=== PATIENT | male | born 1935 | race Caucasian/White ===

== ENCOUNTER 2016-08-01 18:17 | Observation (INO) | payer OTHER ==
[~2016-08-01] VITALS: Ht 172.7 cm; Wt 102.9 kg
[~2016-08-01 18:17] MED LIST: ASCORBIC ACID500 M3 PO; ATORVASTATIN CA20 MG PO; BENICAR20 MG PO; CRESTOR20 MG PO; FLUTICASONE PRO30 GM TP; FUROSEMIDE80 MG PO; HUMALOG; HUMALOG100 UNIT/1 SC; IRBESARTAN150 MG PO; JANUMET XR 50-1 EAC1 PO; K-DUR20 MEQ PO; LANTUS 10100 UNITS/ SC; LANTUS 3 M100 UNITS1 SC; LASIX40 MG PO; NASONEX17 GM BOTH NARES; PERCOCET 5/31 TABLET PO; ST. JOSEPH ASPI81 MG PO; VITAMIN B122500 MCG PO; VITAMIN D400 UNI4 PO
[2016-08-01 19:14] LABS: HEMATOCRIT 35.7 % (38.0-50.0); MCH 26.9 PG (29.0-34.0); MCHC 33.3 G/DL (30.0-36.0); MEAN PLAT.VOLUME 9.9 uM^3 (9.0-12.4); PLATELET COUNT 183 K/uL (156-360); RBC DIS.WIDTH-CV 13.9 % (11.8-14.6); RBC DIS.WIDTH-SD 39.9 % (39-53); RED BLOOD COUNT 4.43 M/uL (4.00-5.50)
[2016-08-01 19:26] LABS: MCV 80.6 FL (86-99); WHITE BLOOD COUNT 11.5 K/uL (4.1-10.2)
[2016-08-01 19:28] LABS: CHLORIDE 98 mEq/L (99-109); SODIUM 133 mEq/L (136-147)
[2016-08-01 19:30] LABS: GLUCOSE 125 mg/dL (70-99)
[2016-08-01 19:31] LABS: ANION GAP 12 MEQ/L (2-14)
[2016-08-01 19:34] LABS: GFR ESTIMATE (CALCULATED) > 59 mL/min/
[2016-08-01 19:35] LABS: UREA NITROGEN (BUN) 9 mg/dL (9-23)
[2016-08-01 20:21] LABS: ADD MIUA? NO; BILIRUBIN NEGATIVE; BLOOD NEGATIVE; COLOR YELLOW ((YELLOW)); GLUCOSE (STRIP) 100; KETONES NEGATIVE; LEUKOCYTES NEGATIVE; NITRITE NEGATIVE; PH, URINE 6.5 (5-8); PROTEIN (STRIP) NEGATIVE; SPECIFIC GRAVITY 1.006 (1.000-1.030); UCUL ADDED? NO; UROBILINOGEN 0.2 MG/DL (0.2-1.0)
[2016-08-01 20:59] LABS: TROP-I INTERPRETATION NEGATIVE; TROPONIN-I < 0.01 ng/mL (0.0-0.30)
[2016-08-01] MEDS ORDERED: JANUMET 50/11 TABLET PO (21:58)
[2016-08-01 23:47] LABS: HDL CHOLESTEROL 32 MG/DL (Desirable>=40); LDL CHOLESTEROL 44 mg/dL (Desirable<100); NON-HDL CHOLESTEROL 58 mg/dL (Desirable<160); TOTAL CHOLESTEROL 90 mg/dL (Desirable<200); TRIGLYCERIDES 71 MG/DL (Normal: <150)
[2016-08-01 23:58] VITALS: BP 133/63
[2016-08-02 01:06] LABS: POINT-OF-CARE METER ID UU13113831
[2016-08-02 08:00] VITALS: BP 132/60
[2016-08-02 09:02] LABS: POINT-OF-CARE METER ID UU13113700
[2016-08-02 12:29] VITALS: BP 143/71
[2016-08-02 12:47] LABS: POINT-OF-CARE METER ID UU14162513
[2016-08-02 16:00] VITALS: BP 143/84
[2016-08-02] MEDS ORDERED: TYLENOL REGULA325 MG PO (17:20)
[2016-08-02 18:05] LABS: POINT-OF-CARE METER ID UU14162513
== END 2016-08-02 18:19 | disposition home or self-care (01) ==
LOC: EME 18:17 → EDOF 22:42 → 5WEST 22:42
PROVIDERS: Emergency Medicine; Hospitalist
DX: R32 Unspecified urinary incontinence (principal); E11.42 Type 2 diabetes mellitus with diabetic polyneuropathy; R26.9 Unspecified abnormalities of gait and mobility; Z91.81 History of falling; M25.511 Pain in right shoulder; R20.2 Paresthesia of skin; M62.81 Muscle weakness (generalized); Z87.891 Personal history of nicotine dependence; Z79.4 Long term (current) use of insulin; Z79.82 Long term (current) use of aspirin; E66.9 Obesity, unspecified; Z68.36 Body mass index [BMI] 36.0-36.9, adult
CPT/HCPCS: 70450; 70551; 71010; 72141; 72148; 80048; 80061; 81003; 82948; 84484; 85027; 93005; 93880; 99281; 99285; G0378; J1100; J1644; J1815

== ENCOUNTER 2016-08-12 11:44 | Emergency (ER) | payer OTHER ==
[~2016-08-12] VITALS: Ht 170.2 cm; Wt 100.7 kg
[~2016-08-12 11:44] MED LIST changes: +JANUMET 50/11 TABLET PO; +TYLENOL REGULA325 MG PO
[2016-08-12 13:25] LABS: HEMATOCRIT 34.5 % (38.0-50.0); MCH 26.5 PG (29.0-34.0); MCHC 32.8 G/DL (30.0-36.0); MCV 80.8 FL (86-99); MEAN PLAT.VOLUME 9.5 uM^3 (9.0-12.4); PLATELET COUNT 197 K/uL (156-360); RBC DIS.WIDTH-SD 39.9 % (39-53); RED BLOOD COUNT 4.27 M/uL (4.00-5.50)
[2016-08-12 13:26] LABS: WHITE BLOOD COUNT 5.8 K/uL (4.1-10.2)
[2016-08-12 13:33] LABS: CHLORIDE 102 mEq/L (99-109); POTASSIUM 4.2 mEq/L (3.7-5.4); SODIUM 135 mEq/L (136-147)
[2016-08-12 13:35] LABS: GLUCOSE 113 mg/dL (70-99)
[2016-08-12 13:36] LABS: ANION GAP 9 MEQ/L (2-14)
[2016-08-12 13:39] LABS: GFR ESTIMATE (CALCULATED) > 59 mL/min/
[2016-08-12 13:40] LABS: UREA NITROGEN (BUN) 8 mg/dL (9-23)
[2016-08-12] MEDS ORDERED: LEVAQUIN500 MG PO (13:45)
[2016-08-12 13:54] LABS: INFLUENZA A VIRAL ANTIGEN NEGATIVE; INFLUENZA B VIRAL ANTIGEN NEGATIVE
[2016-08-12 14:14] LABS: ADD MIUA? NO; BILIRUBIN NEGATIVE; BLOOD NEGATIVE; COLOR YELLOW ((YELLOW)); GLUCOSE (STRIP) NEGATIVE; KETONES NEGATIVE; LEUKOCYTES NEGATIVE; NITRITE NEGATIVE; PROTEIN (STRIP) NEGATIVE; SPECIFIC GRAVITY 1.016 (1.000-1.030); UCUL ADDED? NO; UROBILINOGEN 0.2 MG/DL (0.2-1.0)
[2016-08-12 15:06] VITALS: BP 129/53
== END 2016-08-12 15:07 | disposition home or self-care (01) ==
LOC: EME 11:44
PROVIDERS: Emergency Medicine
DX: J40 Bronchitis, not specified as acute or chronic (principal); E11.9 Type 2 diabetes mellitus without complications; E78.5 Hyperlipidemia, unspecified; I10 Essential (primary) hypertension; Z79.4 Long term (current) use of insulin; Z79.84 Long term (current) use of oral hypoglycemic drugs; Z79.82 Long term (current) use of aspirin; Z87.891 Personal history of nicotine dependence
CPT/HCPCS: 71020; 80048; 81003; 83605; 85027; 87502; 99281; 99285; J2405

== ENCOUNTER 2016-08-21 18:42 | Observation (INO) | payer OTHER ==
[~2016-08-21] VITALS: Ht 170.2 cm; Wt 98.6 kg
[~2016-08-21 18:42] MED LIST changes: +LEVAQUIN500 MG PO
[2016-08-21 19:30] LABS: HEMATOCRIT 37.9 % (38.0-50.0); MCH 26.1 PG (29.0-34.0); MCHC 32.2 G/DL (30.0-36.0); MCV 81.2 FL (86-99); MEAN PLAT.VOLUME 9.4 uM^3 (9.0-12.4); PLATELET COUNT 216 K/uL (156-360); RBC DIS.WIDTH-CV 14.2 % (11.8-14.6); RED BLOOD COUNT 4.67 M/uL (4.00-5.50); WHITE BLOOD COUNT 6.3 K/uL (4.1-10.2)
[2016-08-21 19:39] LABS: CHLORIDE 101 mEq/L (99-109); POTASSIUM 4.7 mEq/L (3.7-5.4); SODIUM 135 mEq/L (136-147)
[2016-08-21 19:41] LABS: GLUCOSE 114 mg/dL (70-99)
[2016-08-21 19:42] LABS: ANION GAP 10 MEQ/L (2-14)
[2016-08-21 19:45] LABS: GFR ESTIMATE (CALCULATED) > 59 mL/min/
[2016-08-21 19:46] LABS: UREA NITROGEN (BUN) 12 mg/dL (9-23)
[2016-08-21 23:19] LABS: TROP-I INTERPRETATION NEGATIVE; TROPONIN-I < 0.01 ng/mL (0.0-0.30)
[2016-08-22] MEDS ORDERED: LANTUS 3 M100 UNITS1 SC (01:28)
[2016-08-22] MEDS ORDERED: HUMALOG100 UNIT/2 SC (01:29)
[2016-08-22] MEDS ORDERED: FLONASE16 G1 BOTH NARES (01:29)
[2016-08-22] MEDS ORDERED: VITAMIN D-3 401 EACH PO (01:30)
[2016-08-22] MEDS ORDERED: BYSTOLIC10 MG PO (01:31)
[2016-08-22 01:43] LABS: ADD MIUA? NO; BILIRUBIN NEGATIVE; BLOOD NEGATIVE; COLOR YELLOW ((YELLOW)); GLUCOSE (STRIP) NEGATIVE; KETONES TRACE; LEUKOCYTES NEGATIVE; NITRITE NEGATIVE; PROTEIN (STRIP) NEGATIVE; SPECIFIC GRAVITY 1.016 (1.000-1.030); UCUL ADDED? NO; UROBILINOGEN 0.2 MG/DL (0.2-1.0)
[2016-08-22 03:35] VITALS: BP 133/61
[2016-08-22 04:25] LABS: INFLUENZA A VIRAL ANTIGEN NEGATIVE; INFLUENZA B VIRAL ANTIGEN NEGATIVE
[2016-08-22 04:30] VITALS: BP 133/61
[2016-08-22 08:00] VITALS: BP 133/60
[2016-08-22 08:50] LABS: INTERNAL CONTROL VALID? YES
[2016-08-22] MEDS ORDERED: ADVAIR HFA120 INHALA IH (10:35)
[2016-08-22] MEDS ORDERED: SPIRIVA RESPIMAT4 GM IH (10:35)
[2016-08-22] MEDS ORDERED: VENTOLIN HFA18 GM IH (10:36)
[2016-08-22] MEDS ORDERED: CEFTIN500 MG PO (10:36)
[2016-08-22 16:00] VITALS: BP 103/51
[2016-08-22 19:37] VITALS: BP 111/60
[2016-08-22 23:49] VITALS: BP 119/62
[2016-08-23 04:04] VITALS: BP 121/66
[2016-08-23 08:00] VITALS: BP 137/66
[2016-08-23 15:30] VITALS: BP 126/58
[2016-08-23] MEDS ORDERED: DELTASONE20 M1 PO (17:44)
[2016-08-23] MEDS ORDERED: PROVENTIL,2.5 MG/3 M IH (17:50)
== END 2016-08-23 20:11 | disposition home or self-care (01) ==
LOC: EME 18:42 → 2EASTP 08-22 01:41 → EDOF 08-22 01:41 → 2EASTP 08-22 01:41
PROVIDERS: Emergency Medicine; Hospitalist; Physician Assistant
DX: J44.0 Chronic obstructive pulmonary disease with (acute) lower respiratory infection (principal); J44.1 Chronic obstructive pulmonary disease with (acute) exacerbation; Z87.891 Personal history of nicotine dependence; I10 Essential (primary) hypertension; E11.9 Type 2 diabetes mellitus without complications; E78.5 Hyperlipidemia, unspecified; G89.29 Other chronic pain; M54.5 Low back pain; Z79.82 Long term (current) use of aspirin; Z79.4 Long term (current) use of insulin
CPT/HCPCS: 71020; 71250; 80048; 81003; 82948; 84484; 85027; 87040; 87070; 87205; 87449; 87502; 93005; 94640; 94640 76; 99202; G0378; J0456; J0696; J1644; J1815; J7030; J7050; J7512

== ENCOUNTER → 2017-01-19 | Outpatient (CLI) | payer MEDICARE, OTHER ==
[~2017-01-19] MED LIST changes: +ADVAIR HFA120 INHALA IH; +BYSTOLIC10 MG PO; +CEFTIN500 MG PO; +DELTASONE20 M1 PO; +FLONASE16 G1 BOTH NARES; +HUMALOG100 UNIT/2 SC; +PROVENTIL,2.5 MG/3 M IH; +SPIRIVA RESPIMAT4 GM IH; +VENTOLIN HFA18 GM IH; +VITAMIN D-3 401 EACH PO
== END | disposition home or self-care (01) ==
LOC: CDC 08:37
DX: G56.01 Carpal tunnel syndrome, right upper limb (principal)
CPT/HCPCS: 93000

== ENCOUNTER → 2017-07-06 | Outpatient (CLI) | payer MEDICARE, OTHER ==
[~2017-07-06] MED LIST changes: +FLOVENT DISKUS1 DIS2 IH
== END | disposition home or self-care (01) ==
LOC: CDC 09:47
DX: K63.9 Disease of intestine, unspecified (principal)
CPT/HCPCS: 93000

== ENCOUNTER 2017-07-12 21:41 | Inpatient (IN) | payer OTHER ==
[~2017-07-12] VITALS: Ht 167.6 cm; Wt 103.4 kg
[~2017-07-12 21:41] MED LIST changes: +IRON325 M1 PO
[2017-07-13 06:14] VITALS: BP 141/65
[2017-07-13 15:01] VITALS: BP 170/73
[2017-07-13 19:21] VITALS: BP 107/64
[2017-07-13 21:33] LABS: APPEARANCE SL.HAZY ((CLEAR)); BILIRUBIN NEGATIVE; BLOOD NEGATIVE; COLOR YELLOW ((YELLOW)); GLUCOSE (STRIP) NEGATIVE; KETONES NEGATIVE; LEUKOCYTES TRACE; NITRITE NEGATIVE; PROTEIN (STRIP) 30; SPECIFIC GRAVITY 1.028 (1.000-1.030); UROBILINOGEN 0.2 MG/DL (0.2-1.0)
[2017-07-13 21:44] LABS: BACTERIA RARE /HPF; EPITHELIAL CELLS RARE /HPF; MUCUS 2+ /LPF; RED BLOOD CELLS 20-30 /HPF (0-5)
[2017-07-13 23:43] VITALS: BP 129/61
[2017-07-14 04:06] VITALS: BP 130/61
[2017-07-14 07:09] LABS: BASOPHIL (%) 0.4 % (0-1); EOSINOPHIL (%) 0.1 % (0-5); HEMATOCRIT 27.2 % (38.0-50.0); HEMOGLOBIN 8.6 G/DL (12.5-16.6); IMMATURE GRANULOCYTE (%) 0.3 % (0.0-0.7); LYMPHOCYTE (%) 20.8 % (15-42); LYMPHOCYTE COUNT 1.6 K/uL (1.0-2.8); MCH 26.7 PG (29.0-34.0); MCHC 31.6 G/DL (30.0-36.0); MCV 84.5 FL (86-99); MONOCYTE (%) 8.3 % (3-12); MONOCYTE COUNT 0.6 K/uL (0-0.8); NEUTROPHIL (%) 70.1 % (45-76); NEUTROPHIL COUNT 5.4 K/uL (1.8-6.4); PLATELET COUNT 201 K/uL (156-360); RBC DIS.WIDTH-CV 19.1 % (11.8-14.6); RBC DIS.WIDTH-SD 58.8 % (39-53); WHITE BLOOD COUNT 7.7 K/uL (4.1-10.2)
[2017-07-14 07:10] LABS: RED BLOOD COUNT 3.22 M/uL (4.00-5.50)
[2017-07-14 07:14] VITALS: BP 132/63
[2017-07-14 07:29] LABS: ALBUMIN 3.2 G/DL (3.2-4.8); ALKALINE PHOSPHATASE 44 IU/L (3-129); ALT (GPT) 11 IU/L (3-49); AST (GOT) 16 IU/L (2-34); CHLORIDE 105 MEQ/L (99-109); CREATININE 0.7 MG/DL (0.6-1.3); GFR ESTIMATE (CALCULATED) > 59 mL/min/ (58.99-99999); GLUCOSE 133 mg/dL (70-99); PHOSPHORUS 2.7 mg/dL (2.5-4.9); POTASSIUM 4.3 MEQ/L (3.7-5.4); SODIUM 137 MEQ/L (136-147); TOTAL BILIRUBIN 0.4 MG/DL (0.0-1.0); TOTAL PROTEIN 5.1 G/DL (6.4-8.3); UREA NITROGEN (BUN) 9 mg/dL (9-23)
[2017-07-14 12:00] VITALS: BP 141/63
[2017-07-14 16:23] VITALS: BP 143/61
[2017-07-14 20:04] VITALS: BP 131/63
[2017-07-15] VITALS (7 sets, daily range): BP systolic 119–140; BP diastolic 58–73
[2017-07-15 06:32] LABS: BASOPHIL (%) 0.4 % (0-1); EOSINOPHIL (%) 0.1 % (0-5); HEMATOCRIT 26.4 % (38.0-50.0); HEMOGLOBIN 8.1 G/DL (12.5-16.6); IMMATURE GRANULOCYTE (%) 0.4 % (0.0-0.7); LYMPHOCYTE (%) 20.9 % (15-42); LYMPHOCYTE COUNT 1.4 K/uL (1.0-2.8); MCH 25.7 PG (29.0-34.0); MCHC 30.7 G/DL (30.0-36.0); MCV 83.8 FL (86-99); MONOCYTE (%) 8.6 % (3-12); MONOCYTE COUNT 0.6 K/uL (0-0.8); NEUTROPHIL (%) 69.6 % (45-76); NEUTROPHIL COUNT 4.7 K/uL (1.8-6.4); PLATELET COUNT 180 K/uL (156-360); RBC DIS.WIDTH-CV 18.7 % (11.8-14.6); RBC DIS.WIDTH-SD 57.6 % (39-53); RED BLOOD COUNT 3.15 M/uL (4.00-5.50); WHITE BLOOD COUNT 6.7 K/uL (4.1-10.2)
[2017-07-15 07:15] LABS: CHLORIDE 103 MEQ/L (99-109); POTASSIUM 3.7 MEQ/L (3.7-5.4); SODIUM 137 MEQ/L (136-147)
[2017-07-16 03:44] VITALS: BP 140/63
[2017-07-16 06:00] LABS: HEMATOCRIT 26.8 % (38.0-50.0); HEMOGLOBIN 8.3 G/DL (12.5-16.6); MCH 25.9 PG (29.0-34.0); MCV 83.5 FL (86-99); PLATELET COUNT 183 K/uL (156-360); RBC DIS.WIDTH-CV 18.4 % (11.8-14.6); RBC DIS.WIDTH-SD 56.6 % (39-53); RED BLOOD COUNT 3.21 M/uL (4.00-5.50); WHITE BLOOD COUNT 8.2 K/uL (4.1-10.2)
[2017-07-16 06:25] VITALS: BP 132/60
[2017-07-16 06:32] LABS: CHLORIDE 103 MEQ/L (99-109); CREATININE 0.7 MG/DL (0.6-1.3); GFR ESTIMATE (CALCULATED) > 59 mL/min/ (58.99-99999); POTASSIUM 3.5 MEQ/L (3.7-5.4); SODIUM 139 MEQ/L (136-147); UREA NITROGEN (BUN) 7 mg/dL (9-23)
[2017-07-16 06:34] LABS: GLUCOSE 59 mg/dL (70-99)
[2017-07-16 12:38] VITALS: BP 131/59
[2017-07-16 15:00] VITALS: BP 117/58
[2017-07-16 19:47] VITALS: BP 134/63
[2017-07-16 23:45] VITALS: BP 144/63
[2017-07-17 03:43] VITALS: BP 130/59
[2017-07-17 07:21] VITALS: BP 123/57
[2017-07-17 07:29] LABS: HEMOGLOBIN 8.1 G/DL (12.5-16.6); MCH 25.4 PG (29.0-34.0); MCHC 31.2 G/DL (30.0-36.0); MCV 81.5 FL (86-99); PLATELET COUNT 199 K/uL (156-360); RBC DIS.WIDTH-SD 54.1 % (39-53); RED BLOOD COUNT 3.19 M/uL (4.00-5.50); WHITE BLOOD COUNT 7.5 K/uL (4.1-10.2)
[2017-07-17 07:45] LABS: ALBUMIN 3.1 G/DL (3.2-4.8); ALKALINE PHOSPHATASE 40 IU/L (3-129); ALT (GPT) 11 IU/L (3-49); AST (GOT) 13 IU/L (2-34); CHLORIDE 102 MEQ/L (99-109); CREATININE 0.6 MG/DL (0.6-1.3); GFR ESTIMATE (CALCULATED) > 59 mL/min/ (58.99-99999); MAGNESIUM 1.8 mg/dl (1.3-2.7); PHOSPHORUS 3.4 mg/dL (2.5-4.9); POTASSIUM 3.6 MEQ/L (3.7-5.4); SODIUM 136 MEQ/L (136-147); TOTAL PROTEIN 5.3 G/DL (6.4-8.3); UREA NITROGEN (BUN) 6 mg/dL (9-23)
[2017-07-17 07:46] LABS: GLUCOSE 81 mg/dL (70-99); TOTAL BILIRUBIN 0.3 MG/DL (0.0-1.0)
[2017-07-17] MEDS ORDERED: COLACE100 MG PO (08:54)
[2017-07-17] MEDS ORDERED: NITROFURANTOIN100 MG PO (08:54)
[2017-07-17] MEDS ORDERED: HYDROCODON-ACE1 EAC7 PO (08:54)
[2017-07-17 11:21] VITALS: BP 121/59
== END 2017-07-17 16:14 | disposition home health service (06) | DRG 330 ==
LOC: ENRESERV 21:41 → 2SOUTH 07-13 05:38 → SDC 07-13 11:58 → EDSTATUS 07-13 12:00 → 2SOUTH 07-13 12:11 → ENRESERV 07-13 13:21 → 2EAST 07-13 14:59
PROVIDERS: Physician Assistant Surgical; Surgery
PROC: 5A09357 Assistance with Respiratory Ventilation, Less than 24 Consecutive Hours, Continuous Positive Airway Pressure (ICD-10-PCS; principal; 2017-07-13)
PROC: 0DTF4ZZ Resection of Right Large Intestine, Percutaneous Endoscopic Approach (ICD-10-PCS; principal; 2017-07-13)
DX: C18.0 Malignant neoplasm of cecum (principal); C18.2 Malignant neoplasm of ascending colon; N39.0 Urinary tract infection, site not specified; K56.7 Ileus, unspecified; B95.2 Enterococcus as the cause of diseases classified elsewhere; I11.0 Hypertensive heart disease with heart failure; I50.9 Heart failure, unspecified; G47.33 Obstructive sleep apnea (adult) (pediatric); Z87.891 Personal history of nicotine dependence; E78.5 Hyperlipidemia, unspecified; D64.9 Anemia, unspecified; M19.90 Unspecified osteoarthritis, unspecified site; E66.9 Obesity, unspecified; Z68.36 Body mass index [BMI] 36.0-36.9, adult; E11.3299 Type 2 diabetes mellitus with mild nonproliferative diabetic retinopathy without macular edema, unspecified eye; E11.65 Type 2 diabetes mellitus with hyperglycemia; Z79.4 Long term (current) use of insulin
CPT/HCPCS: 74020; 80048; 80051; 80053; 81003; 82948; 83735; 84100; 85025; 85027; 87077; 87086; 87186; 88309; 94640; 94640 76; 94660; 94799; J0290; J1100; J1650; J1815; J1885; J2001; J2405; J2765; J2795; J3010; J3475; J7050; J7120; P9045; S0028; S0074

== ENCOUNTER 2017-08-02 14:14 | Emergency (ER) | payer OTHER ==
[~2017-08-02] VITALS: Ht 167.6 cm; Wt 96.6 kg
[~2017-08-02 14:14] MED LIST changes: +COLACE100 MG PO; +HYDROCODON-ACE1 EAC7 PO; +NITROFURANTOIN100 MG PO
[2017-08-02 16:33] LABS: HEMATOCRIT 31.3 % (38.0-50.0); HEMOGLOBIN 9.8 G/DL (12.5-16.6); MCH 24.7 PG (29.0-34.0); MCHC 31.3 G/DL (30.0-36.0); PLATELET COUNT 401 K/uL (156-360); RBC DIS.WIDTH-CV 17.7 % (11.8-14.6); RBC DIS.WIDTH-SD 51.9 % (39-53); RED BLOOD COUNT 3.96 M/uL (4.00-5.50); WHITE BLOOD COUNT 7.7 K/uL (4.1-10.2)
[2017-08-02 16:51] LABS: CHLORIDE 105 mEq/L (99-109); POTASSIUM 4.4 mEq/L (3.7-5.4); SODIUM 135 mEq/L (136-147)
[2017-08-02 16:53] LABS: GLUCOSE 138 mg/dL (70-99)
[2017-08-02 16:57] LABS: CREATININE 0.7 mg/dL (0.6-1.3); GFR ESTIMATE (CALCULATED) > 59 mL/min/ (58.99-99999)
[2017-08-02 16:58] LABS: UREA NITROGEN (BUN) 11 mg/dL (9-23)
[2017-08-02 18:10] LABS: ALBUMIN 3.7 g/dL (3.2-4.8)
[2017-08-02 18:13] LABS: TOTAL PROTEIN 6.3 g/dL (6.4-8.3)
[2017-08-02 18:15] LABS: TOTAL BILIRUBIN 0.3 mg/dL (0.0-1.0)
[2017-08-02 18:16] LABS: ALKALINE PHOSPHATASE 58 IU/L (3-129)
[2017-08-02 18:18] LABS: AST (GOT) 13 IU/L (2-34); DIRECT BILIRUBIN 0.2 mg/dL (0.0-0.3)
[2017-08-02 18:19] LABS: ALT (GPT) 16 IU/L (3-49)
[2017-08-02 21:54] LABS: APPEARANCE CLEAR ((CLEAR)); BILIRUBIN NEGATIVE; BLOOD NEGATIVE; COLOR YELLOW ((YELLOW)); GLUCOSE (STRIP) NEGATIVE; KETONES NEGATIVE; LEUKOCYTES NEGATIVE; NITRITE NEGATIVE; PROTEIN (STRIP) NEGATIVE; UCUL ADDED? NO; UROBILINOGEN 0.2 MG/DL (0.2-1.0)
[2017-08-02] MEDS ORDERED: ZITHROMAX Z-PA250 MG PO (22:14)
[2017-08-02] MEDS ORDERED: EXPECTORANT200 M1 PO (22:14)
[2017-08-02] MEDS ORDERED: ZOFRAN ODT4 MG PO (22:14)
[2017-08-02 22:39] VITALS: BP 140/63
== END 2017-08-02 22:41 | disposition home or self-care (01) ==
LOC: EME 14:14
PROVIDERS: Physician Assistant Medical
DX: J40 Bronchitis, not specified as acute or chronic (principal); R11.2 Nausea with vomiting, unspecified; R35.0 Frequency of micturition; E78.5 Hyperlipidemia, unspecified; E11.9 Type 2 diabetes mellitus without complications; Z79.4 Long term (current) use of insulin; Z85.038 Personal history of other malignant neoplasm of large intestine; Z90.49 Acquired absence of other specified parts of digestive tract; Z79.82 Long term (current) use of aspirin; Z87.891 Personal history of nicotine dependence
CPT/HCPCS: 71046; 74177; 80048; 80076; 81003; 85027; 87502; 93005; 99281; 99285; J2405; J7030

== ENCOUNTER 2017-10-08 09:54 | Emergency (ER) | payer OTHER ==
[~2017-10-08] VITALS: Ht 167.6 cm; Wt 104.5 kg
[~2017-10-08 09:54] MED LIST changes: +EXPECTORANT200 M1 PO; +ZITHROMAX Z-PA250 MG PO; +ZOFRAN ODT4 MG PO
[2017-10-08 11:24] LABS: CHLORIDE 103 mEq/L (99-109); POTASSIUM 4.3 mEq/L (3.7-5.4); SODIUM 133 mEq/L (136-147)
[2017-10-08 11:25] LABS: GLUCOSE 182 mg/dL (70-99)
[2017-10-08 11:29] LABS: CREATININE 0.7 mg/dL (0.6-1.3); GFR ESTIMATE (CALCULATED) > 59 mL/min/ (58.99-99999)
[2017-10-08 11:30] LABS: UREA NITROGEN (BUN) 10 mg/dL (9-23)
[2017-10-08 11:32] LABS: BASOPHIL (%) 0.6 % (0-1); EOSINOPHIL (%) 0.6 % (0-5); HEMATOCRIT 37.1 % (38.0-50.0); HEMOGLOBIN 11.2 G/DL (12.5-16.6); IMMATURE GRANULOCYTE (%) 0.6 % (0.0-0.7); LYMPHOCYTE (%) 23.8 % (15-42); LYMPHOCYTE COUNT 1.7 K/uL (1.0-2.8); MCH 22.5 PG (29.0-34.0); MCHC 30.2 G/DL (30.0-36.0); MCV 74.5 FL (86-99); MONOCYTE (%) 9.3 % (3-12); MONOCYTE COUNT 0.7 K/uL (0-0.8); NEUTROPHIL (%) 65.1 % (45-76); NEUTROPHIL COUNT 4.7 K/uL (1.8-6.4); PLATELET COUNT 184 K/uL (156-360); RBC DIS.WIDTH-CV 17.4 % (11.8-14.6); RBC DIS.WIDTH-SD 46.2 % (39-53); RED BLOOD COUNT 4.98 M/uL (4.00-5.50); WHITE BLOOD COUNT 7.1 K/uL (4.1-10.2)
[2017-10-08 12:58] VITALS: BP 159/78
== END 2017-10-08 13:03 | disposition home or self-care (01) ==
LOC: EME 09:54
PROVIDERS: Emergency Medicine
DX: S00.01XA Abrasion of scalp, initial encounter (principal); W18.30XA Fall on same level, unspecified, initial encounter; E78.5 Hyperlipidemia, unspecified; Z79.4 Long term (current) use of insulin; Z87.891 Personal history of nicotine dependence; E11.9 Type 2 diabetes mellitus without complications; Z85.038 Personal history of other malignant neoplasm of large intestine
CPT/HCPCS: 70450; 80048; 85025; 93005; 99281; 99284

== ENCOUNTER 2017-12-23 10:17 | Emergency (ER) | payer OTHER ==
[~2017-12-23] VITALS: Ht 170.2 cm; Wt 102.1 kg
[2017-12-23 11:46] LABS: BASOPHIL (%) 0.4 % (0-1); EOSINOPHIL (%) 0.8 % (0-5); HEMATOCRIT 40.1 % (38.0-50.0); HEMOGLOBIN 13.1 G/DL (12.5-16.6); IMMATURE GRANULOCYTE (%) 0.4 % (0.0-0.7); LYMPHOCYTE (%) 18.2 % (15-42); LYMPHOCYTE COUNT 0.9 K/uL (1.0-2.8); MCH 25.2 PG (29.0-34.0); MCHC 32.7 G/DL (30.0-36.0); MCV 77.1 FL (86-99); MONOCYTE (%) 8.1 % (3-12); MONOCYTE COUNT 0.4 K/uL (0-0.8); NEUTROPHIL (%) 72.1 % (45-76); NEUTROPHIL COUNT 3.5 K/uL (1.8-6.4); PLATELET COUNT 127 K/uL (156-360); RBC DIS.WIDTH-CV 18.4 % (11.8-14.6); RBC DIS.WIDTH-SD 50.9 % (39-53); WHITE BLOOD COUNT 4.8 K/uL (4.1-10.2)
[2017-12-23 11:55] LABS: CHLORIDE 102 mEq/L (99-109); POTASSIUM 3.8 mEq/L (3.7-5.4); SODIUM 136 mEq/L (136-147)
[2017-12-23 11:57] LABS: GLUCOSE 138 mg/dL (70-99)
[2017-12-23 12:01] LABS: CREATININE 0.7 mg/dL (0.6-1.3); GFR ESTIMATE (CALCULATED) > 59 mL/min/ (58.99-99999)
[2017-12-23 12:02] LABS: UREA NITROGEN (BUN) 16 mg/dL (9-23)
[2017-12-23 13:59] VITALS: BP 132/64
== END 2017-12-23 14:33 | disposition home or self-care (01) ==
LOC: EME 10:17
PROVIDERS: Emergency Medicine
DX: R19.7 Diarrhea, unspecified (principal); R53.1 Weakness; Z85.038 Personal history of other malignant neoplasm of large intestine; Z90.49 Acquired absence of other specified parts of digestive tract; R29.6 Repeated falls; E78.5 Hyperlipidemia, unspecified; E11.9 Type 2 diabetes mellitus without complications; Z79.4 Long term (current) use of insulin; Z79.82 Long term (current) use of aspirin; Z91.81 History of falling; Z87.891 Personal history of nicotine dependence
CPT/HCPCS: 80048; 82948; 85025; 99281; 99284; G8978 GP CI; G8979 GP CH; G8987 GO CI; G8988 GO CH